=== PATIENT | female | born 1985 | race Caucasian/White ===

== ENCOUNTER 2017-07-11 13:48 | Inpatient (IN) | payer BC ==
[2017-07-11 14:20] VITALS: BMI 25.8
[2017-07-11] MEDS ORDERED: Lidocaine 1% (PF) 30 ML VIAL SC PRN (14:41)
[2017-07-11] MEDS ORDERED: Ibuprofen 800 MG TAB PO PRN (14:41)
[2017-07-11] MEDS ORDERED: LR / Pitocin 40 units/1000 ml 1,000 ML IV PRN (14:41)
[2017-07-11] MEDS ORDERED: Ondansetron HCl/PF 4 MG/2 ML Vial IVP PRN (14:41)
[2017-07-11] MEDS ORDERED: Acetaminophen/Codeine 30-300mg Tablet PO PRN ×2 (14:41)
[2017-07-11] MEDS ORDERED: Lactated Ringer's 1,000 ML IV SCH ×2 (14:45)
[2017-07-11 15:04] LABS: Hemoglobin 9.9 g/dL (12.0-16.0); Mean Corpuscular Hemoglobin 23.8 pg (27.0-31.0); Mean Corpuscular Volume 76.8 fl (81.0-99.0); Mean Platelet Volume 10.8 fL (7.4-10.4); Platelet Count 212 thou/uL (130-400); RBC Distribution Width 17.4 % (11.5-14.5); Red Blood Cell (RBC) Count 4.15 mill/uL (4.20-5.40)
[2017-07-11 15:41] LABS: Syphilis Antibody Nonreactive (Nonreactive); Syphilis Antibody Index 0.05 S/CO (<1.00 Non-Reactive)
[2017-07-11 15:42] LABS: HBSAg Index 0.12 S/CO (0-0.99); Hep B Surf Ag Non-Reactive S/CO (NonReactive)
[2017-07-11] MEDS ORDERED: SEROQUEL 150 MG PO SCH (21:00)
[2017-07-12] MEDS ORDERED: HYDROcodone/Acetaminophen 5/325 mg Tablet PO PRN (01:59)
[2017-07-12] MEDS ORDERED: Acetaminophen/Codeine 30-300mg Tablet PO PRN (01:59)
[2017-07-12] MEDS ORDERED: Milk Of Magnesia 30 ML UDCUP PO PRN (01:59)
[2017-07-12] MEDS ORDERED: Lanolin Ointment 7 GM TUBE TOP PRN (01:59)
[2017-07-12] MEDS ORDERED: Preparation H Ointment 28 GM TUBE PR PRN (01:59)
[2017-07-12] MEDS ORDERED: LR / Pitocin 40 units/1000 ml 1,000 ML IV SCH (01:59)
[2017-07-12] MEDS ORDERED: Bisacodyl 10 MG SUPP PR PRN (01:59)
[2017-07-12] MEDS ORDERED: Methylergonovine 0.2 MG/ML VIAL IM PRN (01:59)
[2017-07-12] MEDS ORDERED: Benzocaine/Menthol 20-0.5% 60 ML CAN TOP PRN (01:59)
[2017-07-12] MEDS ORDERED: Ondansetron HCl/PF 4 MG/2 ML Vial IVP PRN (01:59)
[2017-07-12] MEDS ORDERED: Misoprostol 200 MCG TAB VAG SCH (02:15)
[2017-07-12] MEDS ORDERED: Docusate Calcium (SURFAK) 240 MG CAP PO SCH (02:15)
[2017-07-12] MEDS: Ibuprofen 800 MG TAB PO SCH ×4 (06:36→21:24)
[2017-07-12] MEDS: Ferrous Sulfate 325 MG TAB PO SCH ×2 (07:40→17:26)
[2017-07-12] MEDS: Prenatal Vitamin 1 TAB PO SCH (07:41)
[2017-07-12] MEDS: Docusate Calcium (SURFAK) 240 MG CAP PO SCH ×2 (07:41→21:25)
[2017-07-12] MEDS ORDERED: PRISTIQ 100 MG PO SCH (09:00)
[2017-07-12] MEDS: PRISTIQ 100 MG PO SCH ×2 (15:07→15:09)
[2017-07-12] MEDS ORDERED: SEROQUEL 150 MG PO SCH (21:00)
[2017-07-12] MEDS ORDERED: QUEtiapine Fumarate ER 50 MG TAB PO SCH (21:00)
[2017-07-13] MEDS: Ibuprofen 800 MG TAB PO SCH (06:02)
[2017-07-13 08:13] VITALS: BP 120/68; TEMP 98.1
[2017-07-13] MEDS: Prenatal Vitamin 1 TAB PO SCH (08:36)
[2017-07-13] MEDS: Docusate Calcium (SURFAK) 240 MG CAP PO SCH (08:36)
[2017-07-13] MEDS: Ferrous Sulfate 325 MG TAB PO SCH (08:36)
[2017-07-13] MEDS: PRISTIQ 100 MG PO SCH (08:54)
[2017-07-13] MEDS ORDERED: Venlafaxine HCl XR 75 MG CAP PO SCH (09:00)
[2017-07-13] MEDS ORDERED: Venlafaxine HCl XR 150 MG CAP PO SCH (09:00)
== END 2017-07-13 12:20 | disposition home or self-care (01) | DRG 775 ==
LOC: L&D/OP 13:48 → L&D 15:56 → 3SW 07-12 01:43
PROVIDERS: ADMIT Family Medicine; ATTEND Family Medicine
PROC: 10E0XZZ Delivery of Products of Conception, External Approach (ICD-10-PCS; principal; 2017-07-11)
PROC: 0HQ9XZZ Repair Perineum Skin, External Approach (ICD-10-PCS; 2017-07-11)
DX: O48.0 Post-term pregnancy (principal); O99.344 Other mental disorders complicating childbirth; F31.9 Bipolar disorder, unspecified; O34.219 Maternal care for unspecified type scar from previous cesarean delivery; O76 Abnormality in fetal heart rate and rhythm complicating labor and delivery; O70.0 First degree perineal laceration during delivery; Z3A.40 40 weeks gestation of pregnancy; Z37.0 Single live birth
CPT/HCPCS: 36415; 51701; 85027; 86780; 87340; 99285; J2001; J2405

== ENCOUNTER 2018-12-25 07:45 | Outpatient (CLI) | payer BC ==
--- NOTE | 2018-12-25 10:19 | ULT ---
ULTRASOUND OBSTETRICAL COMPLETE: DATE: 12-25-18 HISTORY: 33-year-old female. ICD-10: Z34.80, normal in multigravida FINDINGS: number: Resendiz lie: Cephalic Maternal cervix: 3 cm in length and closed. Placenta: Posterior. No placenta previa. Amniotic fluid volume: JEREMI 11 cm heart rate: 143 bpm The following anatomy is visualized, with no evidence of anomalies: Head, cerebellum, cisterna magna, lateral ventricles, four chamber heart, stomach, kidneys, cord inse rtion, bladder, upper extremities, lower extremities and three vessel cord. Because of motion, the spine, nose, and lips are poorly visualized. biometry: Head circumference (HC): 14.9 cm 18 w 0 d Biparietal diameter (BPD): 4.2 cm 18 w 6 d Abdominal circumference (AC): 13.2 cm 18 w 6 d Femur length (FL): 2.7 cm 18 w 2 d Average ultrasound age (AUA): 18w 4d Estimated date of delivery (JOSE): 05-24-19 Last menstrual period (LMP): 08-19-2018 Gestational age by LMP: 18w 2d Estimated weight (EFW): 239 g +/- 35 g (1 lb 8 oz, +/-1 oz) IMPRESSION: 1. Live second trimester intrauterine gestation. 2. Estimated gestational age of 8 weeks, 4 days. 3. Cephalic lie. 4. Nose and lips, and spine, poorly visualized because of motion. 5. The rest of the anatomy appears normal. MAMADOU Knight POS: CET
== END 2018-12-25 07:46 | disposition home or self-care (01) ==
LOC: BICULT 07:45
PROVIDERS: ATTEND Family Medicine
DX: Z34.81 Encounter for supervision of other normal pregnancy, first trimester (principal); Z3A.08 8 weeks gestation of pregnancy
CPT/HCPCS: 76805